=== PATIENT | male | born 1995 | race African-American/Black ===

== ENCOUNTER 2019-05-26 02:37 | Emergency (ER) | payer SELFPAY ==
[~2019-05-26] VITALS: Ht 180.3 cm; Wt 90.0 kg
[2019-05-26] MEDS ORDERED: SODIUM CHLORIDE 0.9% 1,000 ML IV ONE (02:43)
[2019-05-26] MEDS ORDERED: MORPHINE SULFATE 4 MG/ML CPJ (NOT FOR IM USE) IV STA (02:43)
[2019-05-26] MEDS ORDERED: ONDANSETRON HCL 4MG/2ML INJ IV STA (02:43)
[2019-05-26] MEDS ORDERED: CEFAZOLIN 1000MG PREMIX 50 ML IV ONE (02:45)
[2019-05-26] MEDS ORDERED: TETANUS, DIPHTHERIA, PERTUSSIS VAC/PF 0.5ML (>7YR OLD) IM ONE (02:45)
[2019-05-26 03:07] LABS: BASOPHILS % 0.7 % (0.0-2.0); EOSINOPHILS % 1.2 % (0.0-5.0); HEMATOCRIT. 43.8 % (42.0-52.0); LYMPHOCYTES % 34.3 % (20.0-50.0); MEAN CORPUSCULAR HEMOGLOBIN 32.5 pg (28.0-32.0); MEAN CORPUSCULAR VOLUME 95.1 fL (80.0-94.0); MEAN PLATELET VOLUME 9.5 fl (7.4-10.4); NEUTROPHILS % 54.8 % (40.0-76.0); PLATELET 196 x1000/uL (130-400); RED CELL DISTRIBUTION WIDTH 13.1 % (11.6-14.6)
[2019-05-26 03:14] LABS: CHLORIDE 103 mEq/L (98-107)
[2019-05-26 03:16] LABS: PARTIAL THROMBOPLASTIN TIME 25.1 sec (23.4-31.0); PROTHROMBIN TIME 10.4 sec (9.6-11.0)
[2019-05-26] MEDS ORDERED: IOHEXOL-300 100 ML BOTTLE ONE (04:38)
[2019-05-26 05:01] VITALS: BP 134/54
== END 2019-05-26 05:08 | disposition short-term general hospital (02) ==
LOC: ER 02:37
DX: S71.002A Unspecified open wound, left hip, initial encounter (principal); F12.10 Cannabis abuse, uncomplicated; W34.09XA Accidental discharge from other specified firearms, initial encounter; Y93.89 Activity, other specified; Y92.89 Other specified places as the place of occurrence of the external cause; Y99.8 Other external cause status
CPT/HCPCS: 36415; 71045; 72170; 74177; 80053; 80320; 83690; 85025; 85610; 85730; 86850; 86900; 86901; 90471; 90715; 96365; 96375; 99291; J0690; J2270; J2405; J7030; Q9967; G0480